=== PATIENT | male | born 1960 | race Caucasian/White ===

== ENCOUNTER 2017-06-09 13:54 | Outpatient (CLI) | payer MEDICAID ==
[~2017-06-09] VITALS: Ht 180.3 cm; Wt 98.0 kg
[~2017-06-09 13:54] MED LIST: PRED20TA PO
[2017-06-09] MEDS ORDERED: albuterol 2.5 MG/3 ML nebule ONE (15:00)
[2017-06-09] MEDS ORDERED: albuterol 2.5 MG/3 ML nebule NEB ONE (15:05)
== END 2017-06-09 23:59 | disposition home or self-care (01) ==
LOC: RT 13:54
PROVIDERS: ATTEND Student in an Organized Health Care Education/Training Program
DX: J44.9 Chronic obstructive pulmonary disease, unspecified (principal); R06.09 Other forms of dyspnea; F17.200 Nicotine dependence, unspecified, uncomplicated
CPT/HCPCS: 94060; 94640; 94729